=== PATIENT | female | born 1985 | race Hispanic/Latino ===

== ENCOUNTER 2020-12-06 10:03 | Outpatient (CLI) | payer OTHER | END 2020-12-06 10:04 | disposition home or self-care (01) | LOC: CSHMRI 10:03 | PROVIDERS: ATTEND Family Medicine | DX: M54.5 Low back pain (principal); G89.4 Chronic pain syndrome; M54.12 Radiculopathy, cervical region; M50.90 Cervical disc disorder, unspecified, unspecified cervical region; M79.18 Myalgia, other site; M54.81 Occipital neuralgia; M50.222 Other cervical disc displacement at C5-C6 level | CPT/HCPCS: 72040; 72100; 72141 ==